=== PATIENT | female | born 1970 | race Caucasian/White ===

== ENCOUNTER 2023-10-03 17:01 | Observation (INO) ==
[2023-10-03] MEDS ORDERED: IOPAMIDOL 100 ML BOTTLE IV ONE (17:02)
[2023-10-03] MEDS: ONDANSETRON 4 MG/2 ML VIAL IV ONE (17:59)
[2023-10-03] MEDS: HYDROmorphone 1 MG/ML SYRINGE IV ONE ×3 (17:59→18:55)
[2023-10-03 18:34] LABS: Basophils # (Auto) 0.02 K/mcL (0.00-0.30); Basophils % (Auto) 0.2 % (0.0-2.0); Eosinophils # (Auto) 0.03 K/mcL (0.00-0.70); Eosinophils % (Auto) 0.2 % (0.0-7.0); Hemoglobin 12.6 g/dL (11.2-15.7); Lymphocytes # (Auto) 1.67 K/mcL (1.50-4.80); Lymphocytes % (Auto) 12.9 % (15.5-49.0); Mean Cell Volume 79.4 fL (80.0-100.0); Mean Corpuscular HGB Conc 31.5 g/dL (31.0-36.0); Mean Platelet Volume 9.5 fL (8.8-12.5); Monocytes # (Auto) 0.58 K/mcL (0.10-0.90); Monocytes % (Auto) 4.5 % (1.0-12.0); Platelet Count 371 K/mcL (140-440); RBC 5.04 M/mcL (3.59-5.38); Red Cell Distribution Width 14.3 % (11.5-14.5); WBC 12.9 K/mcL (4.5-11.0)
[2023-10-03] MEDS: 0.9 % SODIUM CHLORIDE 1,000 ML IV ONE (18:54)
[2023-10-03 19:02] LABS: ALT/SGPT 20 U/L (<40); AST/SGOT 30 U/L (<32); Albumin 4.3 gm/dL (3.2-5.2); Albumin/Globulin Ratio 1.3 (1.0-2.3); Alkaline Phosphatase 97 U/L (39-117); Bilirubin,Total 0.4 mg/dL (0.1-1.0); Blood Urea Nitrogen 17 mg/dL (6-20); Calcium 9.7 mg/dL (8.6-10.4); Carbon Dioxide 23 mmol/L (22-30); Chloride 102 mmol/L (96-108); Globulin 3.3 gm/dL (2.2-3.7); Glomerular Filtration Rate 57; Glucose 136 mg/dL (70-105); Potassium 3.7 mmol/L (3.3-5.1); Sodium 138 mmol/L (133-145)
[2023-10-03] MEDS ORDERED: IBUPROFEN 400 MG PO PRN (22:47)
[2023-10-03] MEDS ORDERED: IPRATROPIUM/ALBUTEROL 3 ML AMPUL.NEB NEB PRN (23:24)
[2023-10-03] MEDS ORDERED: MELATONIN 3 MG TABLET PO PRN (23:24)
[2023-10-03] MEDS: HYDROmorphone 1 MG/ML SYRINGE IV PRN (23:29)
[2023-10-03] MEDS: ONDANSETRON 4 MG/2 ML VIAL IV PRN (23:30)
[2023-10-03] MEDS: HYDROmorphone 1 MG/ML SYRINGE ONE (23:51)
[2023-10-03] MEDS: ONDANSETRON 4 MG/2 ML VIAL ONE (23:51)
[2023-10-03] MEDS: oxyCODONE IR 5 MG TABLET PO PRN (23:57)
[2023-10-04] MEDS: oxyCODONE IR 5 MG TABLET PO ONE (00:02)
[2023-10-04] MEDS ORDERED: METOCLOPRAMIDE 10 MG/2 ML VIAL IV PRN (00:13)
[2023-10-04] MEDS ORDERED: PROMETHAZINE 50 MG/ML AMPUL IM PRN (00:13)
[2023-10-04] MEDS: PROMETHAZINE 25 MG/ML VIAL IM ONE (00:18)
[2023-10-04] MEDS: PROMETHAZINE 50 MG/ML AMPUL IM PRN (00:18)
[2023-10-04] MEDS: HYDROmorphone 1 MG/ML SYRINGE IV PRN (01:13)
[2023-10-04] MEDS: HYDROmorphone 1 MG/ML SYRINGE ONE ×4 (01:20→06:50)
[2023-10-04] MEDS: 0.9 % SODIUM CHLORIDE 10 ML SYRINGE IV SCH (04:34)
[2023-10-04] MEDS ORDERED: NAPROXEN 250 MG TABLET PO PRN (06:35)
[2023-10-04 06:43] LABS: Basophils # (Auto) 0.03 K/mcL (0.00-0.30); Basophils % (Auto) 0.2 % (0.0-2.0); Eosinophils # (Auto) 0.04 K/mcL (0.00-0.70); Eosinophils % (Auto) 0.3 % (0.0-7.0); Hematocrit 34.9 % (34.1-44.9); Hemoglobin 10.9 g/dL (11.2-15.7); Lymphocytes # (Auto) 1.91 K/mcL (1.50-4.80); Lymphocytes % (Auto) 15.7 % (15.5-49.0); Mean Corpuscular HGB Conc 31.2 g/dL (31.0-36.0); Mean Platelet Volume 9.7 fL (8.8-12.5); Monocytes # (Auto) 0.65 K/mcL (0.10-0.90); Monocytes % (Auto) 5.4 % (1.0-12.0); Neutrophils % (Auto) 78.2 % (38.0-78.0); Platelet Count 314 K/mcL (140-440); RBC 4.31 M/mcL (3.59-5.38); Red Cell Distribution Width 14.4 % (11.5-14.5); WBC 12.1 K/mcL (4.5-11.0)
[2023-10-04] MEDS: ONDANSETRON 4 MG/2 ML VIAL ONE (06:50)
[2023-10-04 07:14] LABS: ALT/SGPT 10 U/L (<40); AST/SGOT 23 U/L (<32); Albumin 3.4 gm/dL (3.2-5.2); Albumin/Globulin Ratio 1.1 (1.0-2.3); Alkaline Phosphatase 79 U/L (39-117); Bilirubin,Total 0.4 mg/dL (0.1-1.0); Blood Urea Nitrogen 15 mg/dL (6-20); Carbon Dioxide 25 mmol/L (22-30); Chloride 104 mmol/L (96-108); Glomerular Filtration Rate 72; Glucose 108 mg/dL (70-105); Potassium 3.6 mmol/L (3.3-5.1); Sodium 139 mmol/L (133-145)
[2023-10-04] MEDS ORDERED: LISINOPRIL/HCTZ 10/12.5MG TABLET PO SCH (09:00)
[2023-10-04] MEDS: DOCUSATE SODIUM 100 MG CAPSULE PO SCH (09:14)
[2023-10-04] MEDS: HYDROCHLOROTHIAZIDE 12.5 MG CAPSULE PO SCH (09:14)
[2023-10-04] MEDS: LISINOPRIL 10 MG TABLET PO SCH (09:14)
[2023-10-04] MEDS: METOCLOPRAMIDE 10 MG/2 ML VIAL IV PRN (10:43)
[2023-10-04] MEDS: morphine 15 MG TAB.SR.12H PO SCH (10:44)
[2023-10-04] MEDS ORDERED: HYDROmorphone 1 MG/ML SYRINGE IV PRN (12:49)
[2023-10-04] MEDS: SENNOSIDES 1 TABLET PO SCH (20:36)
[2023-10-04] MEDS: ACETAMINOPHEN 325 MG TABLET PO PRN (23:45)
[2023-10-05 07:11] LABS: Basophils # (Auto) 0.04 K/mcL (0.00-0.30); Basophils % (Auto) 0.4 % (0.0-2.0); Eosinophils # (Auto) 0.33 K/mcL (0.00-0.70); Eosinophils % (Auto) 3.5 % (0.0-7.0); Hematocrit 33.7 % (34.1-44.9); Hemoglobin 10.4 g/dL (11.2-15.7); Lymphocytes % (Auto) 31.4 % (15.5-49.0); Mean Cell Volume 81.8 fL (80.0-100.0); Mean Corpuscular HGB Conc 30.9 g/dL (31.0-36.0); Mean Platelet Volume 9.9 fL (8.8-12.5); Monocytes # (Auto) 0.52 K/mcL (0.10-0.90); Monocytes % (Auto) 5.5 % (1.0-12.0); Neutrophils % (Auto) 59.1 % (38.0-78.0); Platelet Count 316 K/mcL (140-440); RBC 4.12 M/mcL (3.59-5.38); Red Cell Distribution Width 14.6 % (11.5-14.5); WBC 9.5 K/mcL (4.5-11.0)
[2023-10-05 07:44] LABS: ALT/SGPT 7 U/L (<40); AST/SGOT 16 U/L (<32); Albumin 3.3 gm/dL (3.2-5.2); Albumin/Globulin Ratio 1.2 (1.0-2.3); Alkaline Phosphatase 70 U/L (39-117); Bilirubin,Total 0.4 mg/dL (0.1-1.0); Blood Urea Nitrogen 15 mg/dL (6-20); Calcium 8.7 mg/dL (8.6-10.4); Carbon Dioxide 28 mmol/L (22-30); Chloride 99 mmol/L (96-108); Globulin 2.8 gm/dL (2.2-3.7); Glomerular Filtration Rate 72; Glucose 86 mg/dL (70-105); Potassium 3.3 mmol/L (3.3-5.1); Sodium 136 mmol/L (133-145)
== END 2023-10-05 13:20 | disposition home or self-care (01) ==
LOC: ED 17:01 → MEDSUR 17:01
PROVIDERS: ADMIT Internal Medicine; ATTEND Internal Medicine

== ENCOUNTER 2023-11-01 05:14 | Inpatient (IN) ==
[2023-10-31 17:21] LABS: Basophils # (Auto) 0.04 K/mcL (0.00-0.30); Basophils % (Auto) 0.4 % (0.0-2.0); Eosinophils # (Auto) 0.34 K/mcL (0.00-0.70); Eosinophils % (Auto) 3.4 % (0.0-7.0); Hematocrit 38.2 % (34.1-44.9); Hemoglobin 11.7 g/dL (11.2-15.7); Lymphocytes # (Auto) 2.74 K/mcL (1.50-4.80); Lymphocytes % (Auto) 27.5 % (15.5-49.0); Mean Cell Volume 79.6 fL (80.0-100.0); Mean Corpuscular HGB Conc 30.6 g/dL (31.0-36.0); Mean Platelet Volume 9.2 fL (8.8-12.5); Monocytes # (Auto) 0.41 K/mcL (0.10-0.90); Monocytes % (Auto) 4.1 % (1.0-12.0); Neutrophils % (Auto) 64.5 % (38.0-78.0); Platelet Count 313 K/mcL (140-440); Red Cell Distribution Width 14.7 % (11.5-14.5)
[2023-10-31 17:42] LABS: ALT/SGPT 13 U/L (<40); AST/SGOT 16 U/L (<32); Albumin 4.2 gm/dL (3.2-5.2); Albumin/Globulin Ratio 1.5 (1.0-2.3); Alkaline Phosphatase 78 U/L (39-117); Bilirubin,Total 0.3 mg/dL (0.1-1.0); Blood Urea Nitrogen 23 mg/dL (6-20); Calcium 9.6 mg/dL (8.6-10.4); Carbon Dioxide 26 mmol/L (22-30); Chloride 101 mmol/L (96-108); Globulin 2.8 gm/dL (2.2-3.7); Glomerular Filtration Rate 83; Glucose 101 mg/dL (70-105); Potassium 3.8 mmol/L (3.3-5.1); Sodium 139 mmol/L (133-145)
[2023-11-01] MEDS ORDERED: PHENYLephrine 1 MG/10 ML SYRINGE (ANEST) ONE (06:39)
[2023-11-01] MEDS ORDERED: LIDOCAINE 2% PF 5 ML VIAL ONE (06:39)
[2023-11-01] MEDS ORDERED: GLYCOPYRROLATE 0.2 MG/ML VIAL IV ONE (06:39)
[2023-11-01] MEDS ORDERED: DEXAMETHASONE 10 MG/ML VIAL ONE (06:39)
[2023-11-01] MEDS ORDERED: ONDANSETRON 4 MG/2 ML VIAL ONE ×2 (06:39→10:34)
[2023-11-01] MEDS ORDERED: SUCCINYLCHOLINE 200 MG/10 ML VIAL IV ONE (06:40)
[2023-11-01] MEDS ORDERED: ROCURONIUM 10 MG/ML ML IV ONE ×2 (06:40→10:34)
[2023-11-01] MEDS ORDERED: fentaNYL 100 MCG/2 ML VIAL ONE ×2 (06:40→09:57)
[2023-11-01] MEDS ORDERED: PROPOFOL 200 MG/20 ML VIAL IV ONE (06:40)
[2023-11-01] MEDS ORDERED: MIDAZOLAM 2 MG/2 ML VIAL ONE (06:40)
[2023-11-01] MEDS ORDERED: KETAMINE 50 MG/ML Syringe IV ONE (06:40)
[2023-11-01] MEDS: ceFAZolin 2 GM in DEXTROSE 5% IN WATER 50 ML IV SCH (07:23)
[2023-11-01] MEDS: IOVERSOL 50 ML VIAL IV ONE (07:45)
[2023-11-01] MEDS: BUPIVACAINE W/EPI 0.25% 50 ML VIAL IJ ONE (08:30)
[2023-11-01] MEDS ORDERED: HYDROmorphone 1 MG/ML SYRINGE ONE ×2 (09:12→11:11)
[2023-11-01] MEDS ORDERED: METOCLOPRAMIDE 10 MG/2 ML VIAL ONE (10:32)
[2023-11-01] MEDS ORDERED: DEXMEDETOMIDINE HCL 200 MCG/2 ML VIAL ONE (10:42)
[2023-11-01] MEDS ORDERED: 0.9 % SODIUM CHLORIDE 100 ML IV ONE (10:43)
[2023-11-01] MEDS ORDERED: SUGAMMADEX SODIUM 200 MG/2 ML VIAL IV ONE (10:51)
[2023-11-01] MEDS ORDERED: IPRATROPIUM/ALBUTEROL 3 ML AMPUL.NEB NEB PRN (10:54)
[2023-11-01] MEDS ORDERED: DROPERIDOL 5 MG/2 ML VIAL IV PRN (10:54)
[2023-11-01] MEDS ORDERED: NALOXONE HCL 0.4 MG/ML VIAL IV PRN ×2 (10:54→17:32)
[2023-11-01] MEDS: fentaNYL 100 MCG/2 ML VIAL IV PRN (11:49)
[2023-11-01] MEDS: HYDROmorphone 0.5 MG/0.5 ML SYRINGE IV PRN ×2 (12:10→17:39)
[2023-11-01] MEDS: 0.9 % SODIUM CHLORIDE 250 ML IV SCH (13:03)
[2023-11-01] MEDS: LACTATED RINGERS 1,000 ML IV SCH (13:03)
[2023-11-01] MEDS: 0.9 % SODIUM CHLORIDE 10 ML SYRINGE IV SCH (13:04)
[2023-11-01] MEDS ORDERED: ONDANSETRON 4 MG ODT TABLET SL PRN (13:09)
[2023-11-01] MEDS: DEXTROSE 5%-1/2NS W/20MEQ KCL 1,000 ML IV SCH (13:13)
[2023-11-01] MEDS: morphine 4 MG/ML VIAL IV PRN (13:17)
[2023-11-01 14:04] LABS: Hematocrit 38.2 % (34.1-44.9); Hemoglobin 11.7 g/dL (11.2-15.7); Mean Cell Volume 80.8 fL (80.0-100.0); Mean Corpuscular HGB Conc 30.6 g/dL (31.0-36.0); Mean Platelet Volume 9.4 fL (8.8-12.5); Platelet Count 292 K/mcL (140-440); RBC 4.73 M/mcL (3.59-5.38); Red Cell Distribution Width 14.8 % (11.5-14.5); WBC 13.6 K/mcL (4.5-11.0)
[2023-11-01 14:36] LABS: Blood Urea Nitrogen 18 mg/dL (6-20); Calcium 9.2 mg/dL (8.6-10.4); Carbon Dioxide 24 mmol/L (22-30); Chloride 101 mmol/L (96-108); Glomerular Filtration Rate 72; Glucose 170 mg/dL (70-105); Potassium 3.7 mmol/L (3.3-5.1); Sodium 138 mmol/L (133-145)
[2023-11-01] MEDS: HYDROcodone/APAP 5/325MG TABLET PO PRN (15:04)
[2023-11-01] MEDS: NAPROXEN 250 MG TABLET PO PRN (15:05)
[2023-11-01] MEDS: CARBOXYMETHYLCELLULOSE SODIUM 1 EACH DROPER.GEL ONE (15:26)
[2023-11-01] MEDS ORDERED: NALOXONE HCL 4 MG NASAL (PP) NS PRN (17:22)
[2023-11-01] MEDS: SODIUM CHLORIDE 5% OPTH DROPS BOTTLE 15ML OU SCH (17:38)
[2023-11-01] MEDS: HYDROmorphone 2 MG TABLET PO PRN (17:38)
[2023-11-01] MEDS: DOCUSATE SODIUM 100 MG CAPSULE PO SCH (20:33)
[2023-11-01] MEDS: SENNOSIDES 1 TABLET PO SCH (20:33)
[2023-11-02 06:54] LABS: Hematocrit 32.6 % (34.1-44.9); Mean Cell Volume 81.1 fL (80.0-100.0); Mean Corpuscular HGB Conc 30.7 g/dL (31.0-36.0); Mean Platelet Volume 9.7 fL (8.8-12.5); Platelet Count 264 K/mcL (140-440); RBC 4.02 M/mcL (3.59-5.38); Red Cell Distribution Width 14.9 % (11.5-14.5); WBC 9.5 K/mcL (4.5-11.0)
[2023-11-02] MEDS: LIDOCAINE 4% TOP PATCH TOPICAL SCH (08:29)
[2023-11-02 08:57] LABS: Blood Urea Nitrogen 15 mg/dL (6-20); Calcium 8.9 mg/dL (8.6-10.4); Carbon Dioxide 24 mmol/L (22-30); Chloride 101 mmol/L (96-108); Glomerular Filtration Rate 72; Glucose 124 mg/dL (70-105); Potassium 4.4 mmol/L (3.3-5.1); Sodium 136 mmol/L (133-145)
[2023-11-02] MEDS ORDERED: LIDOCAINE 4% TOP PATCH TOPICAL SCH (10:00)
[2023-11-02] MEDS: HYDROCHLOROTHIAZIDE 12.5 MG CAPSULE PO SCH (10:08)
[2023-11-02] MEDS: LISINOPRIL 10 MG TABLET PO SCH (10:09)
[2023-11-02] MEDS: HYDROmorphone 2 MG TABLET PO PRN (12:08)
[2023-11-03] MEDS: HYDROCHLOROTHIAZIDE 12.5 MG CAPSULE PO SCH (08:47)
[2023-11-03] MEDS: LISINOPRIL 10 MG TABLET PO SCH (08:48)
== END 2023-11-03 11:25 | disposition home or self-care (01) | DRG 658 ==
LOC: MEDSUR 05:14 → EDSTATUS 07:30
PROVIDERS: ADMIT Urology; ATTEND Urology